=== PATIENT | male | born 1935 | race Caucasian/White ===

== ENCOUNTER → 2017-07-17 | Outpatient (CLI) | payer OTHER, MEDICARE | LOC: FIMAGING 11:38 | PROVIDERS: ATTEND Internal Medicine | DX: J42 Unspecified chronic bronchitis (principal); E03.9 Hypothyroidism, unspecified; N28.9 Disorder of kidney and ureter, unspecified; D89.89 Other specified disorders involving the immune mechanism, not elsewhere classified; Z51.81 Encounter for therapeutic drug level monitoring ==

== ENCOUNTER → 2017-08-26 | Outpatient (CLI) | payer OTHER, MEDICARE ==
[~2017-08-26] MED LIST: GADOBUTROL 10 ML VIAL IVP ONE
== END ==
LOC: FIMAGING 10:17
DX: G93.89 Other specified disorders of brain (principal)
CPT/HCPCS: 70543; A9585